=== PATIENT | male | born 1950 | race African-American/Black ===

== ENCOUNTER 2020-07-28 09:12 | Outpatient (CLI) | payer MEDICARE, OTHER | END 2020-07-28 09:13 | disposition home or self-care (01) | LOC: CSHULT 09:12 | PROVIDERS: ATTEND Internal Medicine | DX: Z13.6 Encounter for screening for cardiovascular disorders (principal); Z87.891 Personal history of nicotine dependence | CPT/HCPCS: 76706 ==